=== PATIENT | female | born 1955 | race African-American/Black ===

== ENCOUNTER 2019-10-01 14:13 | Emergency (ER) | payer MEDICAID ==
[~2019-10-01] VITALS: Ht 167.6 cm; Wt 110.0 kg
[2019-10-01] MEDS ORDERED: ACETAMINOPHEN 650MG/20.3ML UDC PO ONE (16:00)
[2019-10-01 22:00] VITALS: BP 151/72
== END 2019-10-01 22:00 | disposition home or self-care (01) ==
LOC: ER 14:17
DX: M79.671 Pain in right foot (principal); L98.499 Non-pressure chronic ulcer of skin of other sites with unspecified severity
CPT/HCPCS: 73610; 99283

== ENCOUNTER 2019-10-02 05:54 | Emergency (ER) | payer MEDICAID ==
[~2019-10-02] VITALS: Ht 170.2 cm; Wt 105.0 kg
[2019-10-02] MEDS ORDERED: ACETAMINOPHEN 325MG TABLET PO ONE (08:15)
[2019-10-02 11:45] VITALS: BP 128/62
== END 2019-10-02 12:59 | disposition home or self-care (01) ==
LOC: ER 05:54
DX: L97.919 Non-pressure chronic ulcer of unspecified part of right lower leg with unspecified severity (principal); I87.8 Other specified disorders of veins
CPT/HCPCS: 99282; 99283